=== PATIENT | female | born 1980 | race Caucasian/White ===

== ENCOUNTER 2019-11-02 07:35 | Emergency (ER) | payer OTHER, SELFPAY ==
[2019-11-02 07:38] VITALS: BP 114/79; PULSE 110; RESP 16; TEMP 37.6; O2SAT 99
[2019-11-02 07:41] VITALS: RESP 16
--- NOTE | 2019-11-02 07:45 | DI.RAD_ITS ---
EXAM: XR CHEST 2V PA LATERAL CLINICAL HISTORY: cough fever. TECHNIQUE: 2D digital imaging was performed. COMPARISON: No exams were available for comparison FINDINGS: LUNGS: Clear. No pleural abnormality seen. HEART: Normal. MEDIASTINUM: Normal. OTHER FINDINGS:Normal. BONE:Normal. IMPRESSION: No acute pulmonary findings.
--- NOTE | 2019-11-02 07:58 | ED.GENADUL_ITS ---
Discharge Plan Disposition Patient Disposition: HOME Condition: Stable Discharge Details Chief Complaint: GenMedical Clinical Impression: CAP (community acquired pneumonia) Primary Care Provider: Arabella Quiñonez ED Provider: Rob Nam Home Meds and New Rx's Prescriptions: New doxycycline hyclate 100 mg tablet 100 mg PO BID Qty: 14 RF: 0 Discharge Instructions Instructions: Community Acquired Pneumonia (ED) Additional Instructions: if you feel more ill, have worsening shortness of breath or severe worsening pain return to the emergency department take 1000mg tylenol and 600mg ibuprofen every 6 hours for pain as needed Medical Decision Making 38 yo female with no chronic medical problems comes in with chief complaint of not feeling well for 5 days. She states she started with body aches and fever to 102 5 days ago and since then has had sore throat and lingering cough, no fevers for a few days. Denies travel, chest pain, abd pain, rash, vomit. does smoke denies drug use does drink occasionally. She is in no distress on exam, has erythema of posterior phraynx, midline uvula, no pain over hyoid or restricted neck movements. Clear lungs, clear rhinorrhea, normal tympanic membranes. Suspect she has influenza, given 5 days of symptoms not a tamiflu candidate. Will check for strep throat and obtain cxr to evaluate for infiltrate strep negative and xray unremarkable on my read but given 5 days of symptoms and still having the cough and low grade fever concern for early CAP,will cover with doxy and advised f/u with pcp if not better by a week and return precautions given Differential Diagnosis Differential Diagnosis: pna, influenza, strep throat Imaging Data Radiologic Study: Attestation: I personally reviewed and interpreted this imaging study as follows: Imaging: X-Ray My impression: no acute findings Lab Data Lab results reviewed: Yes I reviewed the patient's lab results. HPI General Mode of arrival: ambulatory . Date/Time Provider Initiated Documentation: 11/02/19 07:52 . Limitations to Documentation: no limitations . Information obtained by: patient . History of Present Illness 38 year old F presents to the emergency department with the chief complaint of not feeling well, described as moderate, Patient started experiencing this day(s) (5) and it has been constant. No relieving factors improve symptom(s), No exacerbating factors reported . Patient did receive the following treatments prior to arrival, none Related Data Home Medications Medication Instructions Recorded Confirmed doxycycline hyclate 100 mg PO BID #14 tab 11/02/19 Previous Rx's Medication Instructions Recorded doxycycline hyclate 100 mg PO BID #14 tab 11/02/19 Allergies Allergy/AdvReac Type Severity Reaction Status Date / Time Penicillins Allergy unsure of Unverified 11/02/19 07:41 reaction General Stated Complaint: GenMedical MAGEN: 3 Review of Systems All systems reviewed & are unremarkable except as noted in HPI and below Constitutional Constitutional: Denies weakness Cardiovascular Cardiovascular: Denies chest pain and Denies dyspnea Respiratory Respiratory: Denies dyspnea Gastrointestinal Gastrointestinal: Denies abdominal pain, Denies nausea and Denies vomiting Musculoskeletal Musculoskeletal: Denies joint swelling Neurologic Neurologic: Denies weakness [facility] Surgical History (Updated 06/30/18 @ 14:34 by [employer] [place]) section Exam Const General: no acute distress Orientation: alert HENMT Head: normal to inspection Ears: external ears normal General nose exam: external nose normal Mouth: moist mucous membranes Eyes General: appearance normal, both eyes and all related structures Neck Neck: normal visual inspection Resp Effort & Inspection: normal respiratory effort and able to speak in complete sentences Cardio Rate: regular rate Skin General skin exam: no rashes or lesions noted Neuro General: alert and oriented x3 Extrem General: normal to inspection Psych Mental Status: mental status grossly normal Course Vital Signs Vital signs: Vital Signs Temperature 37.6 C H 11/02/19 07:38 Pulse 110 H 11/02/19 07:38 Respiratory Rate 16 11/02/19 07:38 Blood Pressure 114/79 11/02/19 07:38 Pulse Oximetry 99 11/02/19 07:38 Temperature 37.6 C H 11/02/19 07:38 Temperature Source Skin 11/02/19 07:38 Pulse 110 H 11/02/19 07:38 Respiratory Rate 16 11/02/19 07:41 Respiratory Effort 11/02/19 07:41 Respiratory Depth Normal 11/02/19 07:41 Respiratory Pattern Normal 11/02/19 07:41 Blood Pressure 114/79 11/02/19 07:38 Blood Pressure Position Sitting 11/02/19 07:38 Pulse Oximetry 99 11/02/19 07:38 Oxygen Delivery Method Room Air 11/02/19 07:38 Oxygen Flow Rate 0 11/02/19 07:38 Pain Level 9 11/02/19 07:38
== END 2019-11-02 08:23 | disposition home or self-care (01) ==
PROVIDERS: Emergency Provider Emergency Medicine; PCP Nurse Practitioner
DX: J18.8 Other pneumonia, unspecified organism (principal); J02.9 Acute pharyngitis, unspecified; F17.210 Nicotine dependence, cigarettes, uncomplicated
CPT/HCPCS: 87880; 99283; 71046; 87081

== ENCOUNTER 2020-10-08 05:06 | Outpatient (CLI) | payer BC, SELFPAY ==
[2020-10-08 13:10] LABS: HCT 42.5 % (36.0-46.0); HGB 13.8 g/dL (11.2-15.7); MCH 30.7 pg (27.0-33.0); MCHC 32.5 % (32.0-36.0); MCV 94.4 fL (80-95); MPV 10.8 fL (8.0-11.0); Platelet Count 298 10^3/uL (130-400); RDW 14.4 % (11.7-14.6); RDW-SD 49.9 fL; WBC 6.96 10^3/uL (4.4-10.8)
[2020-10-08 13:20] LABS: ALT 21 U/L (14-59); AST 16 U/L (15-37); Albumin 4.1 g/dL (3.4-5.0); Alkaline Phosphatase 85 U/L (46-116); Anion Gap 4.4 mmol/L (3-11); BUN 9 mg/dL (7-18); Bilirubin, Total 0.4 mg/dL (0.2-1.0); CO2 29.6 mmol/L (21.0-32.0); CREATININE 0.76 mg/dL (0.55-1.02); Calcium 9.1 mg/dL (8.5-10.1); Calculated LDL 105 mg/dL (<100); Chloride 104 mmol/L (98-107); Cholesterol 164 mg/dL (<200); Glucose 86 mg/dL (74-106); HDL Cholesterol 45 mg/dL (40-60); Potassium 4.2 mmol/L (3.5-5.1); Sodium 138 mmol/L (136-145); TSH (W/Ref FT4) 1.58 uIU/mL (0.36-3.74); Total Protein 7.2 g/dL (6.4-8.2); Triglyceride 74 mg/dL (<150)
[2020-10-08 13:47] LABS: Amylase 51 U/L (25-115)
[2020-10-08 13:54] LABS: Lipase 97 U/L (73-393)
== END 2020-10-08 05:26 ==
DX: E03.9 Hypothyroidism, unspecified (principal); I10 Essential (primary) hypertension; R10.12 Left upper quadrant pain; D50.9 Iron deficiency anemia, unspecified; R14.0 Abdominal distension (gaseous); R19.7 Diarrhea, unspecified; G89.29 Other chronic pain; G47.00 Insomnia, unspecified
CPT/HCPCS: 36415; 80053; 80061; 83690; 85027; 82150; 84443

== ENCOUNTER 2020-11-15 16:56 | Outpatient (REF) | payer BC, SELFPAY ==
--- NOTE | 2020-11-15 13:00 | PAPFT_PTH ---
PATIENT: Coco Hernandez LOC: [facility] U#:[id number] AGE/SX: 39/F ROOM: RE11/15/[address]: Monique Ga APRN : 1980 BED: DIS: 11/15/2020 SPEC #: [id number] RECD: 11/16/20 12:58 STATUS: LAURO RESarah #: [id number] JEFFREY: 11/15/20 13:[address]: Monique Ga DEPT: [facility] Cytology RECD BY: Angie Higginbotham Tissues: 1 - CX/ENDOCX FOR PAP SMEARS Procedures: PAP THIN PREP/[facility] Screening HPV DNA PROBE Comments: [id number] (HPV 16 & 18/45)
== END 2020-11-15 16:57 | disposition home or self-care (01) ==
LOC: LBN 16:56
DX: Z12.4 Encounter for screening for malignant neoplasm of cervix (principal); Z11.51 Encounter for screening for human papillomavirus (HPV); R87.810 Cervical high risk human papillomavirus (HPV) DNA test positive
CPT/HCPCS: 88142; 87624

== ENCOUNTER 2022-03-20 03:58 | Outpatient (CLI) | payer BC, SELFPAY ==
[2022-03-20 12:49] LABS: ALT 24 U/L (14-59); AST 17 U/L (15-37); Alkaline Phosphatase 70 U/L (46-116); Anion Gap 8.2 mmol/L (3-11); BUN 11 mg/dL (7-18); Bilirubin, Total 0.3 mg/dL (0.2-1.0); CO2 25.8 mmol/L (21.0-32.0); CREATININE 0.7 mg/dL (0.55-1.02); Calcium 8.9 mg/dL (8.5-10.1); Chloride 105 mmol/L (98-107); Glucose 87 mg/dL (74-106); Potassium 3.7 mmol/L (3.5-5.1); Sodium 139 mmol/L (136-145); Total Protein 7.3 g/dL (6.4-8.2)
== END 2022-03-20 03:59 | disposition home or self-care (01) ==
LOC: LOS 03:58
PROVIDERS: PCP Nurse Practitioner
DX: Z00.00 Encounter for general adult medical examination without abnormal findings (principal); R10.12 Left upper quadrant pain; R51.9 Headache, unspecified
CPT/HCPCS: 36415; 80053

== ENCOUNTER 2022-03-27 16:05 | Outpatient (REF) | payer BC, SELFPAY ==
--- NOTE | 2022-03-27 15:00 | PAPFT_PTH ---
PATIENT: Coco Hernandez LOC: [facility] U#:[id number] AGE/SX: 41/F ROOM: RE03/27/[address]: Arabella Quiñonez, PhD [employer] : 1980 BED: DIS: 03/27/2022 SPEC #: [id number] RECD: 03/28/22 13:00 STATUS: LAURO ESPINOSA #: [id number] JEFFREY: 03/27/22 15:[address]: Arabella Quiñonez DEPT: [facility] Cytology RECD BY: Angie Higginbotham Tissues: 1 - CX/ENDOCX FOR PAP SMEARS Procedures: PAP THIN PREP/[facility] Screening HPV DNA PROBE Comments: [id number]
== END 2022-03-27 16:06 | disposition home or self-care (01) ==
LOC: LBN 16:05
PROVIDERS: PCP Nurse Practitioner; Visit Provider Nurse Practitioner
DX: Z12.4 Encounter for screening for malignant neoplasm of cervix (principal); Z11.51 Encounter for screening for human papillomavirus (HPV)
CPT/HCPCS: 88142; 87624

== ENCOUNTER → 2023-06-10 01:57 | Outpatient (CLI) | payer BC, SELFPAY ==
--- NOTE | 2023-06-10 08:30 | DI.RAD_ITS ---
Exam(s) XR HIP RT COMPLETE AP PELVIS EXAM: XR HIP RT COMPLETE AP PELVIS CLINICAL HISTORY: continued hip pain,rt [id number]. TECHNIQUE: 2D digital imaging was performed of the right hip. Three images were obtained. AP pelvis and lateral right hip views were obtained. COMPARISON: No exams were available for comparison FINDINGS: BONES: No acute fracture is present. No bony destructive lesion is seen. JOINTS: No dislocation present. The joint spaces are well maintained. SOFT TISSUE: Normal. There is calcification in the soft tissues adjacent to the greater trochanter co nsistent with calcific tendinitis. IMPRESSION: No acute abnormality. DATA REPOSITORY: RADIATION DOSE DELIVERED:
== END ==
PROVIDERS: PCP Nurse Practitioner Family; Visit Provider Nurse Practitioner Family
DX: M25.551 Pain in right hip (principal)
CPT/HCPCS: 73502

== ENCOUNTER 2023-10-21 09:27 | Outpatient (CLI) | payer BC, SELFPAY ==
[2023-10-21 12:19] LABS: Abs Immature Grans 0.01 10^3/uL (0.0-0.06); Absolute Basophil Count 0.03 10^3/uL (0.0-0.2); Absolute Eosinophil Count 0.15 10^3/uL (0.0-0.7); Absolute Neutrophil Count 3.86 10^3/uL (1.2-6.7); Basophils % 0.5; Eosinophils % 2.3; HCT 41.5 % (36.0-46.0); HGB 13.6 g/dL (11.2-15.7); Immature Grans % 0.2; Lymphocytes % 32.1; MCH 30.2 pg (27.0-33.0); MCHC 32.8 % (32.0-36.0); MCV 92 fL (80-95); MPV 10.7 fL (8.0-11.0); Monocytes % 6.1; Neutrophils % 58.8; Platelet Count 325 10^3/uL (130-400); RBC 4.51 10^6/uL (3.93-5.22); RDW 14.1 % (11.7-14.6); RDW-SD 47.8 fL; WBC 6.55 10^3/uL (4.4-10.8)
[2023-10-21 12:35] LABS: ALT 17 U/L (14-59); AST 16 U/L (15-37); Albumin 4.2 g/dL (3.4-5.0); Alkaline Phosphatase 63 U/L (46-116); BUN 8 mg/dL (7-18); Bilirubin, Total 0.4 mg/dL (0.2-1.0); CREATININE 0.7 mg/dL (0.55-1.02); Calcium 9.2 mg/dL (8.5-10.1); Chloride 104 mmol/L (98-107); Estimated GFR 112.05 (mL/min/1.73m2); Glucose 89 mg/dL (74-106); Lipase 32 U/L (16-77); Potassium 3.9 mmol/L (3.5-5.1); Sodium 141 mmol/L (136-145); Total Protein 7.6 g/dL (6.4-8.2)
== END 2023-10-21 09:28 | disposition home or self-care (01) ==
LOC: LOS 09:27
PROVIDERS: PCP Nurse Practitioner Family; Referring Provider Nurse Practitioner Family; Visit Provider Nurse Practitioner Family
DX: R10.9 Unspecified abdominal pain (principal)
CPT/HCPCS: 36415; 80053; 83690; 85025